=== PATIENT | female | born 1945 | race Two or more races ===

== ENCOUNTER 2024-02-23 07:52 | Outpatient (CLI) | payer OTHER | END 2024-02-23 07:53 | disposition home or self-care (01) | LOC: NUCLEAR 07:52 | PROVIDERS: ATTEND Internal Medicine Pulmonary Disease | DX: J43.2 Centrilobular emphysema (principal); J30.1 Allergic rhinitis due to pollen; J45.50 Severe persistent asthma, uncomplicated; R91.1 Solitary pulmonary nodule; Z87.891 Personal history of nicotine dependence ==